=== PATIENT | male | born 1960 | race Caucasian/White ===

== ENCOUNTER 2018-07-15 07:37 | Day surgery (SDC) | payer OTHER ==
[~2018-07-15 07:37] MED LIST: ALPR.25 PO; Abilify2 MG PO; CLON.1 PO; CYCL10 PO; Cardura1 MG PO; DEPO MEDROL IM; DIPATR PO; DOXA4 PO; DULO60; DULO60 PO; Depo-Testo100 MG/1 M IM; FISH OIL 1,001000 MG PO; FLUT44OIA INH; Flovent Diskus50 MCG IH; MORP30 PO; MORPHINE SULFAT10 MG PO; MORPHINE SULFAT20 MG PO; MORPHINE SULFATE PO; Morphine Sulfat15 MG PO; Ms Contin100 MG PO; PAIN PUMP FENTANYL; PROM25 PO; SERT100 PO; TOPI25 PO; TRAZ150T57 PO; TRAZ50 PO
[2018-07-16] MEDS ORDERED: GABA300 PO (12:09)
[2018-07-16] MEDS ORDERED: Ms Contin30 MG PO (16:35)
== END 2018-07-15 16:55 | disposition home or self-care (01) ==
LOC: ATC 07:37
DX: T85.738A Infection and inflammatory reaction due to other nervous system device, implant or graft, initial encounter (principal); A39.0 Meningococcal meningitis; G97.82 Other postprocedural complications and disorders of nervous system; G96.0 Cerebrospinal fluid leak; G03.8 Meningitis due to other specified causes; Z88.0 Allergy status to penicillin; Z88.5 Allergy status to narcotic agent; Z87.891 Personal history of nicotine dependence
CPT/HCPCS: 96365; J0696

== ENCOUNTER 2018-07-16 07:38 | Day surgery (SDC) | payer OTHER ==
[2018-07-16] MEDS ORDERED: GABA300 PO (12:09)
[2018-07-16] MEDS ORDERED: Ms Contin30 MG PO (16:35)
== END 2018-07-16 16:12 | disposition home or self-care (01) ==
LOC: ATC 07:38
DX: T85.72XA Infection and inflammatory reaction due to insulin pump, initial encounter (principal); M96.1 Postlaminectomy syndrome, not elsewhere classified; G97.82 Other postprocedural complications and disorders of nervous system; G03.8 Meningitis due to other specified causes; A39.0 Meningococcal meningitis; G96.0 Cerebrospinal fluid leak; Z87.891 Personal history of nicotine dependence
CPT/HCPCS: 96365; J0696

== ENCOUNTER 2018-07-16 11:12 | Emergency (ER) | payer OTHER ==
[~2018-07-16] VITALS: Ht 177.8 cm; Wt 72.6 kg
[2018-07-16] MEDS ORDERED: GABA300 PO (12:09)
[2018-07-16] MEDS ORDERED: Ms Contin30 MG PO (16:35)
== END 2018-07-16 13:55 | disposition home or self-care (01) ==
LOC: ER 11:12
DX: G89.29 Other chronic pain (principal); M54.5 Low back pain; Z88.8 Allergy status to other drugs, medicaments and biological substances; Z88.0 Allergy status to penicillin; Z79.899 Other long term (current) drug therapy; Z87.891 Personal history of nicotine dependence
CPT/HCPCS: 96374; 96375; 99283-25; J1170; J3360

== ENCOUNTER 2018-07-16 16:16 | Emergency (ER) | payer OTHER ==
[~2018-07-16] VITALS: Ht 177.8 cm; Wt 72.6 kg
[~2018-07-16 16:16] MED LIST changes: +GABA300 PO
[2018-07-16] MEDS ORDERED: Ms Contin30 MG PO (16:35)
== END 2018-07-16 16:41 | disposition home or self-care (01) ==
LOC: ER 16:16
DX: G89.29 Other chronic pain (principal); M54.5 Low back pain
CPT/HCPCS: 99281

== ENCOUNTER 2018-07-17 01:32 | Day surgery (SDC) | payer OTHER ==
[~2018-07-17 01:32] MED LIST changes: +Ms Contin30 MG PO
== END 2018-07-17 16:24 | disposition home or self-care (01) ==
LOC: ATC 01:32
DX: T85.738A Infection and inflammatory reaction due to other nervous system device, implant or graft, initial encounter (principal); A39.0 Meningococcal meningitis; Z87.891 Personal history of nicotine dependence; Z88.5 Allergy status to narcotic agent
CPT/HCPCS: 96365; J0696

== ENCOUNTER 2018-07-18 07:17 | Day surgery (SDC) | payer OTHER | END 2018-07-18 15:28 | disposition home or self-care (01) | LOC: ATC 07:17 | DX: T85.738A Infection and inflammatory reaction due to other nervous system device, implant or graft, initial encounter (principal); A39.0 Meningococcal meningitis; M96.1 Postlaminectomy syndrome, not elsewhere classified; G97.82 Other postprocedural complications and disorders of nervous system; G03.8 Meningitis due to other specified causes; G96.0 Cerebrospinal fluid leak | CPT/HCPCS: 96365; J0696 ==

== ENCOUNTER 2018-07-18 20:44 | Emergency (ER) | payer OTHER ==
[~2018-07-18] VITALS: Ht 177.8 cm; Wt 72.6 kg
== END 2018-07-18 23:06 | disposition home or self-care (01) ==
LOC: ER 20:44
DX: Z76.0 Encounter for issue of repeat prescription (principal); M54.9 Dorsalgia, unspecified; Z88.8 Allergy status to other drugs, medicaments and biological substances; Z88.0 Allergy status to penicillin; Z79.899 Other long term (current) drug therapy; Z87.891 Personal history of nicotine dependence
CPT/HCPCS: 99281

== ENCOUNTER 2018-07-19 00:08 | Day surgery (SDC) | payer OTHER | END 2018-07-19 15:59 | disposition home or self-care (01) | LOC: ATC 00:08 | DX: T85.738A Infection and inflammatory reaction due to other nervous system device, implant or graft, initial encounter (principal); G03.8 Meningitis due to other specified causes; G96.0 Cerebrospinal fluid leak; M96.1 Postlaminectomy syndrome, not elsewhere classified; G97.82 Other postprocedural complications and disorders of nervous system; Z88.5 Allergy status to narcotic agent; Z79.899 Other long term (current) drug therapy | CPT/HCPCS: 96365; J0696 ==

== ENCOUNTER 2018-07-20 00:01 | Day surgery (SDC) | payer OTHER | END 2018-07-20 16:23 | disposition home or self-care (01) | LOC: ATC 00:01 | DX: T85.738A Infection and inflammatory reaction due to other nervous system device, implant or graft, initial encounter (principal); G03.9 Meningitis, unspecified; Y83.1 Surgical operation with implant of artificial internal device as the cause of abnormal reaction of the patient, or of later complication, without mention of misadventure at the time of the procedure | CPT/HCPCS: 96365; J0696 ==

== ENCOUNTER 2018-07-21 00:26 | Day surgery (SDC) | payer OTHER | END 2018-07-21 16:15 | disposition home or self-care (01) | LOC: ATC 00:26 | DX: T85.738A Infection and inflammatory reaction due to other nervous system device, implant or graft, initial encounter (principal); G03.9 Meningitis, unspecified | CPT/HCPCS: 96365; J0696 ==

== ENCOUNTER 2018-07-22 07:33 | Day surgery (SDC) | payer OTHER | END 2018-07-22 16:04 | disposition home or self-care (01) | LOC: ATC 07:33 | DX: A39.0 Meningococcal meningitis (principal); M96.1 Postlaminectomy syndrome, not elsewhere classified; G97.82 Other postprocedural complications and disorders of nervous system; G03.8 Meningitis due to other specified causes; G96.0 Cerebrospinal fluid leak; Z87.891 Personal history of nicotine dependence; Z88.5 Allergy status to narcotic agent; Z88.0 Allergy status to penicillin | CPT/HCPCS: 96365; J0696 ==

== ENCOUNTER 2018-07-23 07:42 | Day surgery (SDC) | payer OTHER | END 2018-07-23 16:12 | disposition home or self-care (01) | LOC: ATC 07:42 | DX: A39.0 Meningococcal meningitis (principal); G03.8 Meningitis due to other specified causes; G97.82 Other postprocedural complications and disorders of nervous system; M96.1 Postlaminectomy syndrome, not elsewhere classified; G96.0 Cerebrospinal fluid leak; J44.9 Chronic obstructive pulmonary disease, unspecified; Z87.891 Personal history of nicotine dependence; Z88.5 Allergy status to narcotic agent; Z88.0 Allergy status to penicillin | CPT/HCPCS: 96365; J0696 ==

== ENCOUNTER 2018-07-24 07:34 | Day surgery (SDC) | payer OTHER | END 2018-07-24 16:16 | disposition home or self-care (01) | LOC: ATC 07:34 | DX: A39.0 Meningococcal meningitis (principal); M96.1 Postlaminectomy syndrome, not elsewhere classified; G97.82 Other postprocedural complications and disorders of nervous system; G03.8 Meningitis due to other specified causes; G96.0 Cerebrospinal fluid leak; Z87.891 Personal history of nicotine dependence; Z88.0 Allergy status to penicillin; Z88.5 Allergy status to narcotic agent | CPT/HCPCS: 96365; J0696 ==

== ENCOUNTER 2018-07-25 00:07 | Day surgery (SDC) | payer OTHER | END 2018-07-25 16:15 | disposition home or self-care (01) | LOC: ATC 00:07 | DX: A39.0 Meningococcal meningitis (principal); M96.1 Postlaminectomy syndrome, not elsewhere classified; G97.82 Other postprocedural complications and disorders of nervous system; G03.8 Meningitis due to other specified causes; G96.0 Cerebrospinal fluid leak; Z88.5 Allergy status to narcotic agent; Z88.0 Allergy status to penicillin; Z87.891 Personal history of nicotine dependence | CPT/HCPCS: 96365; J0696 ==

== ENCOUNTER → 2019-01-08 | Outpatient (CLI) | payer OTHER | END | disposition home or self-care (01) | LOC: LAB EV 17:26 → LAB SHORT 17:26 | DX: L03.211 Cellulitis of face (principal); L02.211 Cutaneous abscess of abdominal wall | CPT/HCPCS: 87070; 87075; 87077; 87147; 87186; 87205 ==

== ENCOUNTER 2020-05-30 13:53 | Day surgery (SDC) | payer OTHER ==
[~2020-05-30] VITALS: Ht 182.9 cm; Wt 87.4 kg
[2020-05-30] MEDS ORDERED: FENTANYL (14:35)
== END 2020-05-30 16:05 | disposition home or self-care (01) ==
LOC: ORSCSDS 13:53
PROVIDERS: Internal Medicine Gastroenterology
PROC: 0DBL8ZX Excision of Transverse Colon, Via Natural or Artificial Opening Endoscopic, Diagnostic (ICD-10-PCS; principal; 2020-05-30 15:15)
PROC: 0DBH8ZX Excision of Cecum, Via Natural or Artificial Opening Endoscopic, Diagnostic (ICD-10-PCS; principal; 2020-05-30 15:15)
DX: Z12.11 Encounter for screening for malignant neoplasm of colon (principal); D12.3 Benign neoplasm of transverse colon; K57.30 Diverticulosis of large intestine without perforation or abscess without bleeding; K64.8 Other hemorrhoids; J44.9 Chronic obstructive pulmonary disease, unspecified; F41.8 Other specified anxiety disorders; Z79.899 Other long term (current) drug therapy; Z87.891 Personal history of nicotine dependence
CPT/HCPCS: 88305; J2405; J2704; J7120